=== PATIENT | male | born 1980 | race Caucasian/White ===

== ENCOUNTER 2017-02-15 13:15 | Emergency (ER) | payer MEDICAID, OTHER ==
[~2017-02-15] VITALS: Ht 175.3 cm; Wt 81.8 kg
[~2017-02-15 13:15] MED LIST: HYDR10TA16 PO; METH500T3 PO; VICOTAB4 PO; XANA1TAB6 PO
[2017-02-15 13:16] VITALS: BP 168/80; PULSE 68; RESP 20; TEMP 97.7; O2SAT 100
--- NOTE | 2017-02-15 13:30 | PD ---
Physical Exam Time Seen by Provider: 13:28 Narrative 36yo M c/o R 4th and 5th finger amputation from a kyler slipping today. Up to date on tetanus. Bandage placed and bleeding controlled in triage. Patient seen in triage. VS reviewed. Patient awaiting bed placement. Data Data Last Documented VS Vital Signs Date Time Temp Pulse Resp B/P Pulse Ox O2 Delivery O2 Flow Rate FiO2 02/15/17 13:16 97.7 68 20 168/80 100 Room Air MDM Supervised Visit with SONY: Judie Sr Feb 15, 2017 13:30
--- NOTE | 2017-02-15 14:16 | RADRPT ---
EXAM DATE/TIME: 02/15/2017 13:50 [facility] COMPARISON: No previous studies available for comparison. INDICATIONS : Right hand pain, smashed in a car kyler. MEDICAL HISTORY : None. SURGICAL HISTORY : Right hand, thumb reattached ENCOUNTER: Initial ACUITY: 1 day PAIN SCORE: 10/10 LOCATION: Right hand, fourth and fifth digits FINDINGS: Fracture distal cough of the fifth digit. No other fractures are appreciated. CONCLUSION: Fracture distal tuff fith finger Cole Covington MD FACR on February 15, 2017 at 14:14 Board Certified Radiologist. This report was verified electronically.
[2017-02-15] MEDS ORDERED: METH40TA PO (16:24)
[2017-02-15 16:28] VITALS: BP 155/78; PULSE 48; RESP 16; O2SAT 100
[2017-02-15] MEDS ORDERED: LIDOCAINE HCL 1% PF 30 ML VIAL ONE (17:43)
--- NOTE | 2017-02-15 17:44 | PD ---
HPI Chief Complaint: Injury Time Seen by Provider: 17:43 Travel History International Travel<30 days: No Contact w/Intl Traveler<30days: No Traveled to known affect area: No History of Present Illness HPI 36-year-old male presents to the emergency department for evaluation of right hand injury that occurred today. He states he was hitting a trailer to a truck when his hand got caught between the trailer and the bumper. He has a 3 cm laceration to the right fourth finger between the PIP and DIP joint. He also has a partial tip amputation of the right fifth finger just above the DIP joint. There is a small knot of bone exposed. The patient states his last tetanus immunization was 3 years ago. He is right-handed. Reports no chronic medical problems. He states he does take methadone. He denies any other symptoms or complaints at this time. PFSH Past Medical History Anxiety: Yes Cardiovascular Problems: Yes ("IRREGULAR HEART BEAT" NO [place]) Diminished Hearing: No Genitourinary: No Musculoskeletal: No Neurologic: Yes (BRAIN INJURY, was on life support) Reproductive: No Respiratory: Yes (BRONCHITIS) Tetanus Vaccination: < 5 Years Influenza Vaccination: No Past Surgical History Eye Surgery: Yes Other Surgery: Yes Social History Alcohol Use: No Tobacco Use: No Substance Use: Yes (DILAUDID) Allergies-Medications (Allergen,Severity, Reaction): Coded Allergies: No Known Allergies (Verified , 02/15/17) Reported Meds & Prescriptions Reported Meds & Active Scripts Active Keflex (Cephalexin) 500 Mg Capsule 500 Mg PO Q6H 10 Days Reported Methadone (Methadone HCl) 40 Mg Tab 30 Mg PO BID Review of Systems Except as stated in HPI: all other systems reviewed are Neg Physical Exam Narrative GENERAL: Well-nourished, well-developed male patient, ambulatory and in no acute distress. Afebrile. SKIN: Focused skin assessment warm/dry. HEAD: Normocephalic. Atraumatic. EYES: No scleral icterus. No injection or drainage. NECK: Supple, trachea midline. No JVD or lymphadenopathy. CARDIOVASCULAR: Regular rate and rhythm without murmurs, gallops, or rubs. RESPIRATORY: Breath sounds equal bilaterally. No accessory muscle use. Lung sounds are clear to auscultation. GASTROINTESTINAL: Abdomen soft, non-tender, nondistended. MUSCULOSKELETAL: No cyanosis, or edema. Patient has 4 cm laceration between the DIP and PIP joint of the right fourth finger. The tendon is intact. He has full range of motion of the DIP and PIP joints of the right fourth finger. He has partial amputation of the right fifth finger just above the DIP joint. The entire nail bed is missing. There is a small amount of bone exposed. BACK: Nontender without obvious deformity. No CVA tenderness. Data Data Last Documented VS Vital Signs Date Time Temp Pulse Resp B/P Pulse Ox O2 Delivery O2 Flow Rate FiO2 02/15/17 16:28 48 16 155/78 100 Room Air 02/15/17 13:16 97.7 Orders Hand, Complete ([id number]) (02/15/17 13:30) Iv Access Insert/Monitor (02/15/17 17:40) Cefazolin Inj (Ancef Inj) (02/15/17 17:45) Bupivacaine Pf 0.5% Inj (Marcaine Pf 0.5 (02/15/17 17:45) Lidocaine 1% Inj (50 Ml) (Xylocaine 1% I (02/15/17 17:45) Lidocaine Pf 1% Inj (Xylocaine-Mpf 1% In (02/15/17 17:43) Lidocaine 1% Inj (Xylocaine 1% Inj) (02/15/17 17:45) Cefazolin Inj (Ancef Inj) (02/15/17 19:00) Mandatory Outpatient Referral (02/15/17 19:03) [facility] Medical Decision Making Medical Screen Exam Complete: Yes Emergency Medical Condition: Yes Medical Record Reviewed: Yes Differential Diagnosis Laceration versus finger amputation versus tendon laceration Narrative Course 36-year-old male presents to the emergency department for evaluation of laceration to the right fourth finger and partial amputation of the right fifth finger. I spoke to Dr. Hill he would like the bone to be chipped away to the level with the skin. He would like a Xeroform dressing applied and he will see the patient in the office. The patient gives verbal consent for this. Patient is given Ancef 1 g IM. Laceration is repaired and I attempted to chip away the bone and cover the bone with subcutaneous tissue. He states he will follow-up with Dr. Hill. Mandatory referral is placed. Patient will be discharged prescription for Keflex. He is to return for any acute worsening of symptoms. Patient verbalizes agreement and understanding. Procedures Procedure Narrative LACERATION LOCATION: Right fourth finger LENGTH: 4 cm NUMBER OF STITCHES/HORTENCIA: 10 simple interrupted sutures REPAIR: The area of the laceration was prepped with Betadine and sterilely draped. A digital block was completed with 1% lidocaine and 0.5% Marcaine. The wound was copiously irrigated and explored without evidence of foreign body, tendon injury or neurovascular injury. The wound was closed using 4-0 Prolene. This was a single layer repair. A sterile dressing was applied. The patient was advised to keep the dressing clean and dry. Patient tolerated the procedure well. LACERATION LOCATION: Right fifth finger LENGTH: Partial amputation just above DIP joint NUMBER OF STITCHES/HORTENCIA: 4 Vicryl 4-0 sutures REPAIR: The area of the laceration was prepped with Betadine and sterilely draped. A digital block was completed 1% lidocaine and 0.5% Marcaine. The wound was copiously irrigated and explored without evidence of foreign body, tendon injury or neurovascular injury. The bone was fully chipped away and fell level with the skin. I pulled the subcutaneous tissue over exposed bone with 4-0 Vicryl. This was a single layer repair. A sterile dressing with Xeroform and Althea was applied. The patient was advised to keep the dressing clean and dry. Patient tolerated the procedure well. Diagnosis Primary Impression: Partial traumatic transphalangeal amputation of right little finger, initial encounter Additional Impression: Finger laceration Qualified Code: S61.214A - Laceration of right ring finger without foreign body without damage to nail, initial encounter Referrals: Velasquez Hill III, MD 1 day Patient Instructions: Care For Your Stitches (ED), Finger Amputation (ED), Finger Laceration (ED), General Instructions Departure Forms: Tests/Procedures, Work Release Enter return to work date: Feb 18, 2017 Additional Instructions: Take antibiotic as directed until gone. This is $4 at [facility]. Clean laceration twice daily with soap and water and apply [id number] antibiotic ointment. Keep laceration clean and dry. No swimming or hot tubs. Follow-up with Dr. Hill. Call his office first thing in the morning to get an appointment. This is extremely important as you have a partial amputation of your right fifth finger. Suture removal in 7 days from right fourth finger. Return to the emergency department for any acute worsening of symptoms. Med/Other Pt SpecificInfo: Prescription(s) given Scripts Cephalexin (Keflex)500 Mg [id number] Mg PO Q6H 10 Days Ref 0 Prov:Ariadne Martinez 02/15/17 Disposition: 01 DISCHARGE HOME Condition: Stable Ariadne Martinez Feb 15, 2017 17:44
[2017-02-15] MEDS ORDERED: LIDOCAINE HCL 1% 30 ML VIAL INFIL ONE (17:45)
[2017-02-15] MEDS ORDERED: BUPIVACAINE HCL PF 0.5% 10 ML VIAL INFIL ONE (17:45)
[2017-02-15] MEDS ORDERED: LIDOCAINE HCL 1% 50 ML VIAL INFIL ONE (17:45)
[2017-02-15] MEDS ORDERED: ceFAZolin INJ 1,000 MG VIAL IM ONE (19:00)
[2017-02-15] MEDS ORDERED: CEPH-460 PO ×2 (19:08→19:10)
== END 2017-02-15 20:20 | disposition home or self-care (01) ==
LOC: NEPC 13:15
DX: S68.626A Partial traumatic transphalangeal amputation of right little finger, initial encounter (principal); S61.214A Laceration without foreign body of right ring finger without damage to nail, initial encounter; W31.9XXA Contact with unspecified machinery, initial encounter
CPT/HCPCS: 11044; 12002; 73130; 96372; 99284; J0690

== ENCOUNTER 2017-11-23 06:49 | Emergency (ER) | payer SELFPAY ==
[~2017-11-23] VITALS: Ht 175.3 cm; Wt 75.0 kg
[~2017-11-23 06:49] MED LIST changes: +CEPH-460 PO; -HYDR10TA16 PO; +METH40TA PO; -METH500T3 PO; -VICOTAB4 PO; -XANA1TAB6 PO
[2017-11-23 07:04] VITALS: BP 134/70; PULSE 89; RESP 13; TEMP 99.2; O2SAT 99
[2017-11-23 07:35] VITALS: RESP 16; O2SAT 99
[2017-11-23 07:50] LABS: AUTOMATED NEUTROPHIL # 10.6 TH/MM3 (1.8-7.7); BASOPHIL % 0.1 % (0.0-2.0); EOSINOPHIL # 0.1 TH/MM3 (0-0.4); EOSINOPHIL % 0.7 % (0.0-4.0); HEMATOCRIT 36.4 % (39.0-51.0); HEMOGLOBIN 12.3 GM/DL (13.0-17.0); LYMPH % 5.2 % (9.0-44.0); LYMPHOCYTE # 0.6 TH/MM3 (1.0-4.8); MEAN CELL VOLUME 90.1 FL (80.0-100.0); MEAN CORPUSCULAR HEMOGLOBIN 30.4 PG (27.0-34.0); MEAN CORPUSCULAR HGB CONC 33.7 % (32.0-36.0); MEAN PLATELET VOLUME 8.7 FL (7.0-11.0); MONO % 6.3 % (0.0-8.0); MONOCYTE # 0.8 TH/MM3 (0-0.9); NEUT % 87.7 % (16.0-70.0); PLATELET COUNT 84 TH/MM3 (150-450); RED BLOOD COUNT 4.04 MIL/MM3 (4.50-5.90); RED CELL DISTRIBUTION WIDTH 13.9 % (11.6-17.2); WHITE BLOOD COUNT 12.1 TH/MM3 (4.0-11.0)
[2017-11-23 08:10] LABS: ALKALINE PHOSPHATASE 92 U/L (45-117); TOTAL BILIRUBIN ADULT 1.3 MG/DL (0.2-1.0); TOTAL PROTEIN 6.9 GM/DL (6.4-8.2)
[2017-11-23 08:27] LABS: ALBUMIN 2.7 GM/DL (3.4-5.0); ALT (GPT) 55 U/L (12-78); AST (GOT) 64 U/L (15-37); BICARBONATE 25.8 MEQ/L (21.0-32.0); BLOOD UREA NITROGEN 13 MG/DL (7-18); CHLORIDE 101 MEQ/L (98-107); CREATININE 1.01 MG/DL (0.60-1.30); GLOMERULAR FILTRATION RATE 82 ML/MIN (>89); GLUCOSE,RANDOM 276 MG/DL (74-106); SODIUM (NA) 133 MEQ/L (136-145)
--- NOTE | 2017-11-23 08:27 | RADRPT ---
EXAM DATE/TIME: 11/23/2017 07:51 [facility] COMPARISON: HAND RIGHT COMPLETE ([id number]), February 15, 2017, 13:50. INDICATIONS : Right hand pain and swelling, unknown injury MEDICAL HISTORY : None. SURGICAL HISTORY : None. ENCOUNTER: Initial ACUITY: 1 week PAIN SCORE: 10/10 LOCATION: Right Hand FINDINGS: Three view examination of the right hand demonstrates prominent soft tissue swelling overlying the do rsum of the hand. Osseous structures appear intact without evidence for bony fracture. No significant destructive bony lesion. No radiopaque foreign bodies. The carpal bones appear intact. The interpha langeal and metacarpophalangeal joints are intact. Bony mineralization is normal. CONCLUSION: 1. Prominent soft tissue swelling overlying the dorsum of the hand without radiopaque foreign body or underlying osseous abnormality. Feliciano Jeffries MD on November 23, 2017 at 8:22 Board Certified Radiologist. This report was verified electronically.
[2017-11-23] MEDS ORDERED: PHARMACY INFORMATION XX ONE ×2 (08:30)
[2017-11-23] MEDS ORDERED: ASP: No known hypersensitivity to Vanco, Telavancin, Dalbavancin OTHER ONE (08:30)
[2017-11-23] MEDS ORDERED: ASP: Location of Dalbavancin administration OTHER ONE (08:30)
[2017-11-23] MEDS ORDERED: ASP: Does not meet inpatient admission criteria OTHER ONE (08:30)
[2017-11-23] MEDS ORDERED: ASP: Only reason for admit - IV antibiotics OTHER ONE (08:30)
--- NOTE | 2017-11-23 08:55 | PD ---
HPI Chief Complaint: Edema Time Seen by Provider: 07:44 Travel History International Travel<30 days: No Contact w/Intl Traveler<30days: No Traveled to known affect area: No History of Present Illness HPI Patient is 37 years old. He arrives there with complaint of right hand swelling for 2 days. He reports gardening believes he may have been stuck by some organic debris. Positive fever. He reports IV drug abuse 1 year prior. He denies any recently. Timing constant. Pain is worse with palpation and range of motion. PFSH Past Medical History Anxiety: Yes Cardiovascular Problems: Yes ("IRREGULAR HEART BEAT" NO [place]) Diminished Hearing: No Genitourinary: No Musculoskeletal: No Neurologic: Yes (BRAIN INJURY, was on life support) Reproductive: No Respiratory: Yes (BRONCHITIS) Immunizations Current: Yes Tetanus Vaccination: > 5 Years Influenza Vaccination: No Past Surgical History Eye Surgery: Yes Other Surgery: Yes Social History Alcohol Use: No Tobacco Use: No Substance Use: Yes (DILAUDID IN THE PAST, PT DENIES AT THIS MOMENT.) Allergies-Medications (Allergen,Severity, Reaction): Coded Allergies: No Known Allergies (Verified Adverse Reaction, Unknown, 11/23/17) Reported Meds & Prescriptions Reported Meds & Active Scripts Active Review of Systems Except as stated in HPI: all other systems reviewed are Neg General / Constitutional: No: Fever Physical Exam Narrative GENERAL: 37-year-old male well-nourished well-developed no acute distress Vital Signs Date Time Temp Pulse Resp B/P (MAP) Pulse Ox O2 Delivery O2 Flow Rate FiO2 11/23/17 07:35 99 Room Air 11/23/17 07:35 16 99 Room Air 11/23/17 07:13 89 15 100 Room Air 11/23/17 07:04 99.2 89 13 134/70 (91) 99 SKIN: Warm and dry. Possible IVDU injection site L antecubital fossa. HEAD: Atraumatic. Normocephalic. EYES: Pupils equal and round. No scleral icterus. No injection or drainage. ENT: No nasal bleeding or discharge. Mucous membranes pink and moist. NECK: Trachea midline. No JVD. CARDIOVASCULAR: Regular rate and rhythm. RESPIRATORY: No accessory muscle use. Clear to auscultation. Breath sounds equal bilaterally. GASTROINTESTINAL: Abdomen soft, non-tender, nondistended. Hepatic and splenic margins not palpable. MUSCULOSKELETAL: There is generalized swelling from the distal third of the forearm to the fingertips on the right side with some warmth. 2+ radial artery pulses bilaterally. NEUROLOGICAL: Awake and alert. No obvious cranial nerve deficits. Motor grossly within normal limits. Five out of 5 muscle strength in the arms and legs. Normal speech. PSYCHIATRIC: Appropriate mood and affect; insight and judgment normal. Data Data Last Documented VS Vital Signs Date Time Temp Pulse Resp B/P (MAP) Pulse Ox O2 Delivery O2 Flow Rate FiO2 11/23/17 07:35 99 Room Air 11/23/17 07:35 16 11/23/17 07:13 89 11/23/17 07:04 99.2 134/70 (91) Orders Orders Sepsis Workup Initiated (11/23/17 ) Complete Blood Count With Diff (11/23/17 07:20) Comprehensive Metabolic Panel (11/23/17 07:20) Lactic Acid Sepsis Protocol (11/23/17 07:20) Blood Culture (11/23/17 07:20) Iv Access Insert/Monitor (11/23/17 07:20) Oxygen Administration (11/23/17 07:20) Oximetry (11/23/17 07:20) Hand, Complete ([id number]) (11/23/17 ) Pharmacy Information ([facility] Pharmacy Info (11/23/17 08:30) Asp:No Reaction To [place]/Vanc (Asp Crit (11/23/17 08:30) Asp: Does Not Meet Inpt Admit (Asp Crit: (11/23/17 08:30) Asp: Iv Antibiotics Admit Only (Asp Crit (11/23/17 08:30) Asp: Location Of [place] Admin (Asp Crit: (11/23/17 08:30) Pharmacy Information ([facility] [place] Pharmacy Info (11/23/17 08:30) [place]in Inj ([facility] Inj) (11/23/17 08:16) Saul Bandage (11/23/17 08:16) Elevate (11/23/17 08:16) Labs Laboratory Tests Test 11/23/17 07:35 White Blood Count 12.1 TH/MM3 Red Blood Count 4.04 MIL/MM3 Hemoglobin 12.3 GM/DL Hematocrit 36.4 % Mean Corpuscular Volume 90.1 FL Mean Corpuscular Hemoglobin 30.4 PG Mean Corpuscular Hemoglobin Concent 33.7 % Red Cell Distribution Width 13.9 % Platelet Count 84 TH/MM3 Mean Platelet Volume 8.7 FL Neutrophils (%) (Auto) 87.7 % Lymphocytes (%) (Auto) 5.2 % Monocytes (%) (Auto) 6.3 % Eosinophils (%) (Auto) 0.7 % Basophils (%) (Auto) 0.1 % Neutrophils # (Auto) 10.6 TH/MM3 Lymphocytes # (Auto) 0.6 TH/MM3 Monocytes # (Auto) 0.8 TH/MM3 Eosinophils # (Auto) 0.1 TH/MM3 Basophils # (Auto) 0.0 TH/MM3 CBC Comment AUTO DIFF Differential Comment AUTO DIFF CONFIRMED Blood Urea Nitrogen 13 MG/DL Creatinine 1.01 MG/DL Random Glucose 276 MG/DL Total Protein 6.9 GM/DL Albumin 2.7 GM/DL Calcium Level 8.0 MG/DL Alkaline Phosphatase 92 U/L Aspartate Amino Transf (AST/SGOT) 64 U/L Alanine Aminotransferase (ALT/SGPT) 55 U/L Total Bilirubin 1.3 MG/DL Sodium Level 133 MEQ/L Potassium Level 4.3 MEQ/L Chloride Level 101 MEQ/L Carbon Dioxide Level 25.8 MEQ/L Anion Gap 6 MEQ/L Estimat Glomerular Filtration Rate 82 ML/MIN Lactic Acid Level 1.8 mmol/L MDM Medical Decision Making Medical Screen Exam Complete: Yes Emergency Medical Condition: Yes Medical Record Reviewed: Yes Differential Diagnosis Cellulitis, abscess, osteomyelitis, sepsis Narrative Course Last Impressions Hand X-Ray 11/23/17 0000 Signed Impressions: Service Date/Time: November 07:51 - CONCLUSION: 1. Prominent soft tissue swelling overlying the dorsum of the hand without radiopaque foreign body or underlying osseous abnormality. Feliciano Jeffries MD CBC & BMP Diagram 11/23/17 07:35 Total Protein 6.9, Albumin 2.7 L, Calcium Level 8.0 L, Alkaline Phosphatase 92, Aspartate Amino Transf (AST/SGOT) 64 H, Alanine Aminotransferase (ALT/SGPT) 55, Total Bilirubin 1.3 H The patient is a good candidate for balance and we will provide for him here. Return precautions discussed. It should be noted there is no evidence of sepsis based on the workup aside from a nonspecific leukocytosis of 12.1. Diagnosis Primary Impression: Cellulitis of hand, right Referrals: Laurence Ortiz MD 3 days Med/Other Pt SpecificInfo: No Change to Meds Disposition: 01 DISCHARGE HOME Condition: Stable Wallace Lam MD November 23, 2017 08:55
[2017-11-23 09:00] VITALS: BP 122/81; PULSE 76; RESP 16; TEMP 98.4; O2SAT 99
[2017-11-23] MEDS: DALBAVANCIN INJ 1,500 MG in DEXTROSE 5% IN WATE 500 ML INJ 500 ML IV STA ×2 (10:25)
[2017-11-23 11:00] VITALS: BP 132/77; TEMP 98.1
[2017-11-23 11:08] VITALS: BP 132/77; PULSE 98; RESP 16; TEMP 98.3; O2SAT 99
== END 2017-11-23 11:00 | disposition home or self-care (01) ==
LOC: NEPE 06:49
DX: L03.113 Cellulitis of right upper limb (principal); F41.9 Anxiety disorder, unspecified
CPT/HCPCS: 73130; 80053; 83605; 85025; 87040; 96365; 99284; J0875; J7060